=== PATIENT | male | born 2000 | race Two or more races ===

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

== ENCOUNTER 2019-04-06 12:20 | Emergency (ER) | payer OTHER ==
[~2019-04-06] VITALS: Ht 180.3 cm; Wt 95.3 kg
[~2019-04-06 12:20] MED LIST changes: +ONDA4TAB7 PO
[2019-04-06 13:06] VITALS: BP 156/85
[2019-04-06] MEDS ORDERED: HYDR-3164 PO (13:53)
[2019-04-06] MEDS ORDERED: ORPH100T PO (13:53)
[2019-04-06] MEDS ORDERED: IBUP-1007 PO (13:53)
--- NOTE | 2019-04-06 13:53 | PHYS DOC ---
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 Patient states the pain is sharp and aching. Patient states the pain is worse with movement. Patient rates his pain 8 out of 10. Patient states he has not taken any pain medication for this. Review of Systems Review of Systems Constitutional: Denies fever or chills [] Musculoskeletal: Right low back pain or joint pain [] Integument: Denies rash or skin lesions [] Neurologic: Denies headache, focal weakness or sensory changes [] All other systems were reviewed and found to be within normal limits, except as documented in this note. Allergies Allergies Allergies Coded Allergies Type Severity Reaction Last Updated Verified No Known Drug Allergies 08/07/13 No Physical Exam Physical Exam Constitutional: Well developed, well nourished, no acute distress, non-toxic appearance. [] Skin: Warm, dry, no erythema, no rash. [] Back: Right lower back tenderness, no CVA tenderness. [] Extremities: No tenderness, no cyanosis, no clubbing, ROM intact, no edema. [] Neurologic: Alert and oriented X 3, normal motor function, normal sensory function, no focal deficits noted. [] Psychologic: Affect normal, judgement normal, mood normal. 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 Patient states the pain is sharp and aching. Patient states the pain is worse with movement. Patient rates his pain 8 out of 10. Patient states he has not taken any pain medication for this. Ambulatory with a steady gait. Patient denies any dysuria, nausea, vomiting, abdominal pain, shortness of air, chest pain. There is slight tenderness to palpation to the right lower back and patient states he does not radiate. Patient is able to bend over and make twisting motions with his waist without complication but is painful. There are no deformities, bruising or abrasions felt. Patient denies trauma to the area. Ambulatory with a steady gait. Patient denies any numbness or tingling. Patient denies any weaknesses. There is no focal bony spinal tenderness with palpation. Patient is treated for a muscle strain with Orphenadrine, [place], and ibuprofen. Patient follow-up with primary care. Alicia Disclaimer [place] Disclaimer This electronic medical record was generated, in whole or in part, using a voice recognition dictation system. Departure Departure Impression: Primary Impression: Low back strain Disposition: HOME, SELF-CARE Condition: STABLE Referrals: NO PCP (PCP) Patient Instructions: Low Back Strain with [facility] Additional Instructions: Follow-up her primary care provider. Use heating pad. Take medication as prescribed. Scripts Ibuprofen (IBUPROFEN) 600 Mg Tablet 600 MG PO PRN Q6HRS PRN for INFLAMMATION, #20 TAB Prov: MARINO JENKINS APRN 04/06/19 Orphenadrine Citrate (ORPHENADRINE CITRATE) 100 Mg Tablet.er 1 TAB PO BID, #20 TAB 1 Refill Prov: MARINO JENKINS APRN 04/06/19 Hydrocodone/Apap 5-325 (NORCO 5-325 TABLET) 1 Each Tablet 1 TAB PO PRN Q6HRS PRN for PAIN, #10 TAB 0 Refills Prov: MARINO JENKINS APRN 04/06/19 Problem Qualifiers Primary Impression: Low back strain Encounter type: initial encounter Qualified Codes: S39.012A - Strain of muscle, fascia and tendon of lower back, initial encounter MARINO JENKINS APRN Apr 06, 2019 13:53
== END 2019-04-06 14:00 | disposition home or self-care (01) ==
LOC: ER 12:20
DX: S39.012A Strain of muscle, fascia and tendon of lower back, initial encounter (principal); X50.1XXA Overexertion from prolonged static or awkward postures, initial encounter; Y93.89 Activity, other specified; Y92.89 Other specified places as the place of occurrence of the external cause; Y99.8 Other external cause status
CPT/HCPCS: 99283

== ENCOUNTER 2020-01-03 08:39 | Emergency (ER) | payer SELFPAY ==
[~2020-01-03] VITALS: Ht 180.3 cm; Wt 105.0 kg
[~2020-01-03 08:39] MED LIST changes: +HYDR-3164 PO; +IBUP-1007 PO; +MECL-75 PO; -MECL25TA3 PO; +ORPH100T PO
[2020-01-03 09:49] LABS: BASO # 0.1 x10^3/uL (0.0-0.2); BASO % 1 % (0-3); EOS # 0.2 x10^3/uL (0.0-0.7); EOS % 3 % (0-3); HEMATOCRIT 42.7 % (39.0-53.0); HEMOGLOBIN 14.6 g/dL (13.0-17.5); LYMPH # 1.5 x10^3/uL (1.0-4.8); LYMPH % 32 % (24-48); MEAN CORPUSCULAR HEMOGLOBIN 29 pg (25-35); MEAN CORPUSCULAR HGB CONC 34 g/dL (31-37); MEAN CORPUSCULAR VOLUME 86 fL (79-100); MONO # 0.5 x10^3/uL (0.0-1.1); MONO % 11 % (0-9); NEUT # 2.6 x10^3/uL (1.8-7.7); NEUT % 53 % (31-73); PLATELET COUNT 242 x10^3/uL (140-400); RED BLOOD COUNT 4.94 x10^6/uL (4.30-5.70); RED CELL DISTRIBUTION WIDTH 14.1 % (11.5-14.5); WHITE BLOOD COUNT 4.9 x10^3/uL (4.0-11.0)
[2020-01-03 09:53] LABS: CALCIUM 8.5 mg/dL (8.5-10.1); CREATININE 0.9 mg/dL (0.7-1.3); GFR 107.6
[2020-01-03 09:58] LABS: ALBUMIN 3.9 g/dL (3.4-5.0); ALBUMIN/GLOBULIN RATIO 1.3 (1.0-1.7); TOTAL BILIRUBIN 0.5 mg/dL (0.2-1.0)
[2020-01-03 10:34] VITALS: BP 136/78
[2020-01-03] MEDS ORDERED: FAMOTIDINE 20 MG/2 ML VIAL IVP ONE (10:45)
[2020-01-03] MEDS ORDERED: METOCLOPRAMIDE HCL 10 MG/2 ML VIAL. IVP ONE (10:45)
--- NOTE | 2020-01-03 11:13 | RAD ---
CHEST AP ONLY History: Reason: cp / Spl. Instructions: / History: Comparison: May 12, 2018 Findings: No consolidation or pleural effusion. Normal heart size. No pneumothorax. Impression: 1. No acute cardiopulmonary process. Electronically signed by: Tigre Galvez DO (01/03/2020 11:11 AM) [id number]
--- NOTE | 2020-01-03 11:30 | PHYS DOC ---
Past Medical History Past Medical History: No Pertinent History Past Surgical History: No Surgical History Smoking Status: Never Smoker Alcohol Use: Occasionally Drug Use: None General Adult EDM: Chief Complaint: NAUSEA/VOMITING/DIARRHA HPI: HPI: 19-year-old male who denies any significant past medical history presents the ED with complaints of nausea, diffuse headache and sharp nonradiating right upper lung and chest pain that started yesterday after he was watching TV. Does report associated productive cough, clear emesis and loose watery diarrhea that started yesterday. Has been unable able to eat anything since 5 PM yesterday. Does not take any routine medications. Denies any alcohol, drug use or tobacco use. Lives with his parents and works at [employer], no known exposure to COVID. No family history of sudden cardiac or CAD. Pt is concerned for COVID. ROS: No associated headache, neck stiffness, sore throat, chest pain, n/v, chest pain, diaphoresis, anosmia, anorexia, melena, hematochezia, leg swelling, dyspnea or hemoptysis. Review of Systems: Review of Systems: Constitutional: Denies fever or chills. [] Eyes: Denies change in visual acuity. [] HENT: Denies nasal congestion or sore throat. [] Respiratory: Denies cough or shortness of breath. [] Cardiovascular: Denies chest pain or edema. [] GI: Denies abdominal pain, nausea, vomiting, bloody stools or diarrhea. [] : Denies dysuria. [] Musculoskeletal: Denies back pain or joint pain. [] Integument: Denies rash. [] Neurologic: Denies headache, focal weakness or sensory changes. [] Endocrine: Denies polyuria or polydipsia. [] Lymphatic: Denies swollen glands. [] Psychiatric: Denies depression or anxiety. [] Heart Score: Risk Factors: Risk Factors: DM, Current or recent (<one month) smoker, HTN, HLP, family history of CAD, obesity. Risk Scores: Score 0 - 3: 2.5% MACE over next 6 weeks - Discharge Home Score 4 - 6: 20.3% MACE over next 6 weeks - Admit for Clinical Observation Score 7 - 10: 72.7% MACE over next 6 weeks - Early Invasive Strategies Current Medications: Current Medications Medications (Trade) Dose Ordered Sig/Kitty Start Time Stop Time Status Last Admin Dose Admin Famotidine (Pepcid Vial) 20 mg 1X ONCE 01/03/20 10:45 01/03/20 10:46 DC 01/03/20 10:52 20 MG Metoclopramide HCl (Reglan Vial) 10 mg 1X ONCE 01/03/20 10:45 01/03/20 10:46 DC 01/03/20 10:52 10 MG Allergies: Allergies: Allergies Coded Allergies Type Severity Reaction Last Updated Verified No Known Drug Allergies 08/07/13 No Physical Exam: PE: Constitutional: Well developed, well nourished, no acute distress, non-toxic appearance. [] HENT: Normocephalic, atraumatic, bilateral external ears normal, oropharynx moist, no oral exudates, nose normal-nasal voice (has kleenex in right nostril 2/2 rhinorrhea), watery eyes Eyes: EOMI, conjunctiva normal, no discharge. [] Neck: Normal range of motion, no tenderness, supple, no stridor. [] Cardiovascular:Heart rate regular rhythm, no murmur [] Lungs & Thorax: very mild expiratory wheeze, speaking in full speaking, no tachypnea Abdomen: Bowel sounds normal, soft, no tenderness, no masses, no pulsatile masses. [] Skin: Warm, dry, no erythema, no rash. [] Back: No tenderness, no CVA tenderness. [] Extremities: No tenderness, no cyanosis, no clubbing, ROM intact, no edema. [] Neurologic: Alert and oriented X 3, normal motor function, normal sensory function, no focal deficits noted. [] Psychologic: Affect normal, judgement normal, mood normal. [] Current Patient Data: Labs: Laboratory Tests Test 01/03/20 09:35 White Blood Count 4.9 x10^3/uL (4.0-11.0) Red Blood Count 4.94 x10^6/uL (4.30-5.70) Hemoglobin 14.6 g/dL (13.0-17.5) Hematocrit 42.7 % (39.0-53.0) Mean Corpuscular Volume 86 fL (79-100) Mean Corpuscular Hemoglobin 29 pg (25-35) Mean Corpuscular Hemoglobin Concent 34 g/dL (31-37) Red Cell Distribution Width 14.1 % (11.5-14.5) Platelet Count 242 x10^3/uL (140-400) Neutrophils (%) (Auto) 53 % (31-73) Lymphocytes (%) (Auto) 32 % (24-48) Monocytes (%) (Auto) 11 % (0-9) H Eosinophils (%) (Auto) 3 % (0-3) Basophils (%) (Auto) 1 % (0-3) Neutrophils # (Auto) 2.6 x10^3/uL (1.8-7.7) Lymphocytes # (Auto) 1.5 x10^3/uL (1.0-4.8) Monocytes # (Auto) 0.5 x10^3/uL (0.0-1.1) Eosinophils # (Auto) 0.2 x10^3/uL (0.0-0.7) Basophils # (Auto) 0.1 x10^3/uL (0.0-0.2) Sodium Level 142 mmol/L (136-145) Potassium Level 4.0 mmol/L (3.5-5.1) Chloride Level 104 mmol/L (98-107) Carbon Dioxide Level 30 mmol/L (21-32) Anion Gap 8 (6-14) Blood Urea Nitrogen 12 mg/dL (8-26) Creatinine 0.9 mg/dL (0.7-1.3) Estimated GFR (Cockcroft-Gault) 107.6 BUN/Creatinine Ratio 13 (6-20) Glucose Level 96 mg/dL (70-99) Calcium Level 8.5 mg/dL (8.5-10.1) Magnesium Level 2.0 mg/dL (1.8-2.4) Total Bilirubin 0.5 mg/dL (0.2-1.0) Aspartate Amino Transferase (AST) 51 U/L (15-37) H Alanine Aminotransferase (ALT) 130 U/L (16-63) H Alkaline Phosphatase 94 U/L (46-116) Troponin I Quantitative < 0.017 ng/mL (0.000-0.055) Total Protein 7.0 g/dL (6.4-8.2) Albumin 3.9 g/dL (3.4-5.0) Albumin/Globulin Ratio 1.3 (1.0-1.7) Lipase 82 U/L (73-393) Laboratory Tests 6/8/20 09:35 Laboratory Tests 01/03/20 09:35 Vital Signs: Vital Signs Date Time Temp Pulse Resp B/P (MAP) Pulse Ox O2 Delivery O2 Flow Rate FiO2 01/03/20 10:34 70 136/78 (97) 99 Room Air 01/03/20 09:00 98.3 18 98.3 EKG: EKG: [] Radiology/Procedures: Radiology/Procedures: IMAGING REPORT Signed PATIENT: JAMILA CROWEACCOUNT: [id number] : 2000 LOCATION: ER AGE: 19 SEX: M EXAM STATUS: REG ER ORD. PHYSICIAN: OK GIPSON DO REASON: cp PROCEDURE: CHEST AP ONLY CHEST AP ONLY History: Reason: cp / Spl. Instructions: / History: Comparison: May 12, 2018 Findings: No consolidation or pleural effusion. Normal heart size. No pneumothorax. Impression: 1. No acute cardiopulmonary process. Electronically signed by: Tigre Gross DO (01/03/2020 11:11 AM) [id number] DICTATED and SIGNED BY: TIGRE GROSS DO DATE: 01/03/20 1111 Impression: Concern for viral-like process vs allergic rhinitis vs asthma. Patient hemody namically stable and 100% on room air. Chest x-ray is unremarkable. Labs including troponin and lipase are unremarkable. Will encourage follow-up with primary care physician. Rx for flonase, claritin and albuterol. Life threatening processes considered but are low suspicion given hx/pe. Strict ED return precautions were given. All of patient's questions were answered and he was stable at time of discharge. Course & Med Decision Making: Course & Med Decision Making Pertinent Labs and Imaging studies reviewed. (See chart for details) [] Dragon Disclaimer: Dragon Disclaimer: This electronic medical record was generated, in whole or in part, using a voice recognition dictation system. Departure Departure Impression: Primary Impression: Viral syndrome Disposition: 01 HOME, SELF-CARE Condition: STABLE Referrals: NO PCP (PCP) Patient Instructions: Nausea and Vomiting, Viral Exanthems, Adult Scripts Ondansetron Hcl (ZOFRAN) 4 Mg Tablet 1 TAB PO Q6HRS, #8 TAB Prov: OK GIPSON DO 01/03/20 Justicifation of Admission Dx: Justifications for Admission: Justification of Admission Dx: N/A OK GIPSON DO Jan 03, 2020 11:30
[2020-01-03] MEDS ORDERED: ONDA4TAB7 PO (12:10)
== END 2020-01-03 12:35 | disposition home or self-care (01) ==
LOC: ER 08:39
DX: B34.9 Viral infection, unspecified (principal)
CPT/HCPCS: 36415; 71045; 80053; 83690; 83735; 84484; 85025; 96374; 96375; 99284; J2765; J3490

== ENCOUNTER 2020-06-29 10:25 | Emergency (ER) | payer SELFPAY ==
[~2020-06-29] VITALS: Ht 180.3 cm; Wt 97.7 kg
[2020-06-29] MEDS ORDERED: IV NORMAL SALINE 1000ML BAG 1,000 ML IV ONE (11:30)
[2020-06-29 12:01] LABS: BASO # 0.1 x10^3/uL (0.0-0.2); BASO % 1 % (0-3); EOS # 0.1 x10^3/uL (0.0-0.7); EOS % 2 % (0-3); HEMATOCRIT 41.7 % (39.0-53.0); HEMOGLOBIN 14.5 g/dL (13.0-17.5); LYMPH # 1.6 x10^3/uL (1.0-4.8); LYMPH % 31 % (24-48); MEAN CORPUSCULAR HEMOGLOBIN 30 pg (25-35); MEAN CORPUSCULAR HGB CONC 35 g/dL (31-37); MEAN CORPUSCULAR VOLUME 86 fL (79-100); MONO # 0.6 x10^3/uL (0.0-1.1); MONO % 11 % (0-9); NEUT % 56 % (31-73); PLATELET COUNT 226 x10^3/uL (140-400); RED BLOOD COUNT 4.86 x10^6/uL (4.30-5.70); RED CELL DISTRIBUTION WIDTH 13.6 % (11.5-14.5); WHITE BLOOD COUNT 5.3 x10^3/uL (4.0-11.0)
[2020-06-29 12:02] LABS: BILIRUBIN,URINE NEGATIVE (NEG); CLARITY,URINE CLEAR; COLOR,URINE YELLOW; NITRITE,URINE NEGATIVE (NEG); PROTEIN,URINE NEGATIVE (NEG-TRACE)
--- NOTE | 2020-06-29 12:04 | EKG ---
[facility] [address] [place] [address] Test Date: 2020-06-29 Test Time: 10:33:09 Pat Name: JAMILA CROWE Department: Room: Gender: M Production Intern: : 2000 Requested By: YANE CORRAL Order Number: [id number] Reading MD: Measurements Intervals Jackson Rate: 85 P: 0 MS: 136 QRS: 0 QRSD: 92 T: -4 QT: 326 QTc: 388 Interpretive Statements SINUS RHYTHM LEFTWARD AXIS OTHERWISE NORMAL ECG RI6.02 No previous ECG available for comparison
--- NOTE | 2020-06-29 12:07 | RAD ---
Single view of the chest. 06/29/2020 11:18 AM Indication: Reason: syncope, chest discomfort relieved by inspiraton / Spl. Instructions: / History: Comparison: Chest radiograph January 03, 2020 Findings: There is no focal consolidation. There is no pleural effusion or pneumothorax. The cardiomediastinal silhouette and pulmonary vasculature are within normal limits. No acute osseous abnormalities are seen. Impression: No evidence of acute cardiopulmonary process. Electronically signed by: Zan Matamoros MD (06/29/2020 12:03 PM) [id number]
[2020-06-29 12:12] LABS: CALCIUM 8.6 mg/dL (8.5-10.1); CREATININE 0.8 mg/dL (0.7-1.3); POTASSIUM 3.8 mmol/L (3.5-5.1)
[2020-06-29 12:14] LABS: BARBITURATES NEG (NEG); BENZODIAZEPINES NEG (NEG); CANNABINOIDS NEG (NEG); COCAINE NEG (NEG); METHADONE NEG (NEG); OPIATES NEG (NEG); PHENCYCLIDINE NEG (NEG)
[2020-06-29 12:17] LABS: AMPHETAMINE/METHAMPHETAMINE NEG (NEG)
[2020-06-29 12:18] LABS: ALBUMIN/GLOBULIN RATIO 1.2 (1.0-1.7); MAGNESIUM 2.1 mg/dL (1.8-2.4); TOTAL BILIRUBIN 0.3 mg/dL (0.2-1.0); TOTAL PROTEIN 7.4 g/dL (6.4-8.2)
[2020-06-29 12:19] LABS: BACTERIA,URINE 0 /HPF (0-FEW); RBC,URINE 0 /HPF (0-2); WBC,URINE OCC /HPF (0-4)
--- NOTE | 2020-06-29 12:25 | ED.ADGEN ---
Past Medical History Past Medical History: No Pertinent History Past Surgical History: No Surgical History Smoking Status: Never Smoker Alcohol Use: Occasionally Drug Use: None General Adult EDM: Chief Complaint: CHEST PAIN HPI: HPI: Patient is a 20 year old male who presents to the emergency department after syncopal episode while at work today. Patient states he was working in the next thing he knew he had passed out. Patient reports when he regained consciousness he felt pain in his chest it was worse with a deep breath. He describes the pain as a sharp stabbing sensation. He denies any shortness of breath at this time. Patient states initially when he came to he felt lightheaded, dizzy, and short of breath. He currently denies any abdominal pain, nausea, vomiting, diarrhea, fever, cough, sore throat, headache, vision changes, numbness, tingling, or weakness. The patient currently rates the discomfort in his chest a 7 out of 10 on the pain scale describes it as a sharp stabbing sensation, there are no alleviating factors, the pain is worse with deep breath only. He denies any recent illicit drug or alcohol use. He denies any medical or surgical history. He denies any known COVID-19 exposures. Review of Systems: Review of Systems: Complete ROS is negative unless otherwise noted in HPI. Current Medications: Current Medications Medications (Trade) Dose Ordered Sig/Kitty Start Time Stop Time Status Last Admin Dose Admin Sodium Chloride 1,000 ml @ 1,000 mls/hr 1X ONCE 06/29/20 11:30 06/29/20 12:29 DC 06/29/20 11:55 1,000 MLS/HR Allergies: Allergies: Allergies Coded Allergies Type Severity Reaction Last Updated Verified No Known Drug Allergies 08/07/13 No Physical Exam: PE: See Above Constitutional: Well developed, well nourished, no acute distress, non-toxic appearance. [] HENT: Normocephalic, atraumatic, bilateral external ears normal, nose normal. [] Eyes: PERRLA, EOMI, conjunctiva normal, no discharge. [] Neck: Normal range of motion, no stridor. [] Cardiovascular:Heart rate regular rhythm Lungs & Thorax: Respirations even and unlabored, no retractions, no respiratory distress Abdomen: soft, no tenderness Skin: Warm, dry, no erythema, no rash. [] Extremities: No cyanosis, ROM intact, no edema. [] Neurologic: Alert and oriented X 3, no focal deficits noted. [] Psychologic: Affect normal, judgement normal, mood normal. [] Current Patient Data: Labs: Laboratory Tests Test 06/29/20 11:46 06/29/20 13:50 White Blood Count 5.3 x10^3/uL (4.0-11.0) Red Blood Count 4.86 x10^6/uL (4.30-5.70) Hemoglobin 14.5 g/dL (13.0-17.5) Hematocrit 41.7 % (39.0-53.0) Mean Corpuscular Volume 86 fL (79-100) Mean Corpuscular Hemoglobin 30 pg (25-35) Mean Corpuscular Hemoglobin Concent 35 g/dL (31-37) Red Cell Distribution Width 13.6 % (11.5-14.5) Platelet Count 226 x10^3/uL (140-400) Neutrophils (%) (Auto) 56 % (31-73) Lymphocytes (%) (Auto) 31 % (24-48) Monocytes (%) (Auto) 11 % (0-9) H Eosinophils (%) (Auto) 2 % (0-3) Basophils (%) (Auto) 1 % (0-3) Neutrophils # (Auto) 3.0 x10^3/uL (1.8-7.7) Lymphocytes # (Auto) 1.6 x10^3/uL (1.0-4.8) Monocytes # (Auto) 0.6 x10^3/uL (0.0-1.1) Eosinophils # (Auto) 0.1 x10^3/uL (0.0-0.7) Basophils # (Auto) 0.1 x10^3/uL (0.0-0.2) D-Dimer (Olivia) 0.37 ug/mlFEU (0.00-0.50) Urine Collection Type Unknown Urine Color Yellow Urine Clarity Clear Urine pH 6.0 (<5.0-8.0) Urine Specific [place] >=1.030 (1.000-1.030) Urine Protein Negative mg/dL (NEG-TRACE) Urine Glucose (UA) Negative mg/dL (NEG) Urine Ketones (Stick) Negative mg/dL (NEG) Urine Blood Negative (NEG) Urine Nitrite Negative (NEG) Urine Bilirubin Negative (NEG) Urine Urobilinogen Dipstick 1.0 mg/dL (0.2 mg/dL) Urine Leukocyte Esterase Negative (NEG) Urine RBC 0 /HPF (0-2) Urine WBC Occ /HPF (0-4) Urine Squamous Epithelial Cells Few /LPF Urine Bacteria 0 /HPF (0-FEW) Urine Mucus Marked /LPF Sodium Level 142 mmol/L (136-145) Potassium Level 3.8 mmol/L (3.5-5.1) Chloride Level 104 mmol/L (98-107) Carbon Dioxide Level 26 mmol/L (21-32) Anion Gap 12 (6-14) Blood Urea Nitrogen 19 mg/dL (8-26) Creatinine 0.8 mg/dL (0.7-1.3) Estimated GFR (Cockcroft-Gault) 122.0 BUN/Creatinine Ratio 24 (6-20) H Glucose Level 104 mg/dL (70-99) H Calcium Level 8.6 mg/dL (8.5-10.1) Magnesium Level 2.1 mg/dL (1.8-2.4) Total Bilirubin 0.3 mg/dL (0.2-1.0) Aspartate Amino Transferase (AST) 23 U/L (15-37) Alanine Aminotransferase (ALT) 54 U/L (16-63) Alkaline Phosphatase 99 U/L (46-116) Troponin I Quantitative < 0.017 ng/mL (0.000-0.055) < 0.017 ng/mL (0.000-0.055) Total Protein 7.4 g/dL (6.4-8.2) Albumin 4.0 g/dL (3.4-5.0) Albumin/Globulin Ratio 1.2 (1.0-1.7) Urine Opiates Screen Neg (NEG) Urine Methadone Screen Neg (NEG) Urine Barbiturates Neg (NEG) Urine Phencyclidine Screen Neg (NEG) Urine Amphetamine/Methamphetamine Neg (NEG) Urine Benzodiazepines Screen Neg (NEG) Urine Cocaine Screen Neg (NEG) Urine Cannabinoids Screen Neg (NEG) Urine Ethyl Alcohol Neg (NEG) Laboratory Tests 06/29/20 11:46 Laboratory Tests 06/29/20 11:46 Vital Signs: Vital Signs Date Time Temp Pulse Resp B/P (MAP) Pulse Ox O2 Delivery O2 Flow Rate FiO2 06/29/20 13:07 70 111/74 (86) 98 Room Air 06/29/20 10:39 98.7 18 98.7 EKG: EK-sinus rhythm, with leftward axis, rate of 85, no STEMI, read by Dr. Olmstead. [] Heart Score: HEART Score for Chest Pain: HEART Score for Chest Pain Response (Comments) Value History Slighlty/Non-Suspicious 0 ECG Normal 0 Age < 45 0 Risk Factors 1 or 2 Risk Factors 1 Troponin < Normal Limit 0 Total 1 Risk Factors: Risk Factors: DM, Current or recent (<one month) smoker, HTN, HLP, family history of CAD, obesity. Risk Scores: Score 0 - 3: 2.5% MACE over next 6 weeks - Discharge Home Score 4 - 6: 20.3% MACE over next 6 weeks - Admit for Clinical Observation Score 7 - 10: 72.7% MACE over next 6 weeks - Early Invasive Strategies Radiology/Procedures: Radiology/Procedures: PROCEDURE: CHEST AP ONLY Single view of the chest. 06/29/2020 11:18 AM Indication: Reason: syncope, chest discomfort relieved by inspiraton / Spl. Instructions: / History: Comparison: Chest radiograph January 03, 2020 Findings: There is no focal consolidation. There is no pleural effusion or pneumothorax. The cardiomediastinal silhouette and pulmonary vasculature are within normal limits. No acute osseous abnormalities are seen. Impression: No evidence of acute cardiopulmonary process. [] Course & Med Decision Making: Course & Med Decision Making Pertinent Labs and Imaging studies reviewed. (See chart for details) 20-year-old male presents to emergency department for evaluation after syncopal episode followed by chest discomfort. EKG revealed no acute findings. Work-up included labs and radiology. Patient's orthostatic vital signs were unremarkable. CBC is unremarkable, CMP is unremarkable, D-dimer is not elevated. Urine drug screen is negative, troponin is negative x2 Chest x-ray revealed no acute findings. Patient was given liter normal saline in the emergency department. I discussed these results with patient, I advised him that he still possibly could have suffered some type of cardiac event, but he does not appear to have a life-threatening emergency at this time. I provided him with Dr. Caputo's contact information and encouraged him to call Dr. Caputo's office in the morning to schedule a echocardiogram and a follo w-up appointment. Patient verbalized an understanding of home care, medications, follow-up, and return to ED instructions and was in agreement with the plan of care. [] Alicia Disclaimer: Dragcarlene Disclaimer: This electronic medical record was generated, in whole or in part, using a voice recognition dictation system. Departure Departure Impression: Primary Impression: Episode of syncope Disposition: 01 DC HOME SELF CARE/HOMELESS Condition: STABLE Referrals: NO PCP (PCP) NADINE CAPUTO MD Patient Instructions: Syncope, [id number] Additional Instructions: Home to rest, increase clear fluids. Call Dr. Caputo's office for follow-up. You need to have an echocardiogram done. Return to the ER if your symptoms worsen or you develop chest pain. Problem Qualifiers Primary Impression: Episode of syncope Syncope type: unspecified Qualified Codes: R55 - Syncope and collapse YANE CORRAL CANCER PROGRAM DIRECTOR Jun 29, 2020 12:25
[2020-06-29 13:07] VITALS: BP 111/74
== END 2020-06-29 14:42 | disposition home or self-care (01) ==
LOC: ER 10:25
DX: R55 Syncope and collapse (principal); R07.89 Other chest pain; R42 Dizziness and giddiness
CPT/HCPCS: 36415; 71045; 80053; 80307; 81001; 83735; 84484; 85025; 85379; 93005; 96360; 99285; J7030